=== PATIENT | female | born 1970 | race Caucasian/White ===

== ENCOUNTER 2023-06-20 05:12 | Observation (INO) ==
--- NOTE | 2023-05-15 10:37 | PAT Medication Instructions ---
Medication Instructions Date of Service May 15, 2023 Home Medications azelastine 137 mcg (0.1 %) nasal spray aerosol 1 - 2 spray intranasal HS bupropion HCl 100 mg tablet 100 mg PO BID celecoxib 200 mg capsule 200 mg PO QAM cetirizine 10 mg tablet (Zyrtec) 10 mg PO BID fexofenadine 180 mg tablet (Inessa Allergy) 180 mg PO BID fluoxetine 20 mg capsule 60 mg PO QAM fluticasone propionate 50 mcg/actuation nasal spray,suspension 2 spray intranasal QAM folic acid 400 mcg tablet 0.4 mg PO QAM gabapentin 100 mg capsule 100 - 300 mg PO UD loratadine 10 mg tablet 10 mg PO BID losartan 50 mg-hydrochlorothiazide 12.5 mg tablet 1 tab PO QAM mechlorethamine 0.016 % topical gel (Valchlor) 1 applic topical DAILY "stress related skin patches" metformin 500 mg tablet 1,000 mg PO BID PCOS methotrexate sodium 2.5 mg tablet 15 mg PO Q7D montelukast 10 mg tablet 10 mg PO QAM omeprazole 40 mg capsule,delayed release 40 mg PO QAM phentermine 37.5 mg tablet 37.5 mg PO QAM tramadol 10 mg PO Q8H PRN Pain triamcinolone acetonide 0.1 % topical cream 1 applic topical DAILY PRN "stress related skin patches" MEDICATION INSTRUCTIONS: Continue as directed triamcinolone acetonide 0.1 % topical cream 1 applic topical DAILY PRN "stress related skin patches" (*do not apply to surgical area after bathing prior to surgery) mechlorethamine 0.016 % topical gel (Valchlor) 1 applic topical DAILY "stress related skin patches" (*do not apply to surgical area after bathing prior to surgery) ASK your surgeon for instructions celecoxib 200 mg capsule 200 mg PO QAM DO NOT take the morning of surgery cetirizine 10 mg tablet (Zyrtec) 10 mg PO BID fexofenadine 180 mg tablet (Inessa Allergy) 180 mg PO BID loratadine 10 mg tablet 10 mg PO BID folic acid 400 mcg tablet 0.4 mg PO QAM losartan 50 mg-hydrochlorothiazide 12.5 mg tablet 1 tab PO QAM metformin 500 mg tablet 1,000 mg PO BID PCOS Take morning of surgery With a small sip of water, OTHERWISE NOTHING TO EAT OR DRINK AFTER MIDNIGHT: bupropion HCl 100 mg tablet 100 mg PO BID fluoxetine 20 mg capsule 60 mg PO QAM fluticasone propionate 50 mcg/actuation nasal spray,suspension 2 spray intranasal QAM gabapentin 100 mg capsule 100 - 300 mg PO UD tramadol 10 mg PO Q8H PRN Pain (if needed) omeprazole 40 mg capsule,delayed release 40 mg PO QAM montelukast 10 mg tablet 10 mg PO QAM Take evening before surgery azelastine 137 mcg (0.1 %) nasal spray aerosol 1 - 2 spray intranasal HS bupropion HCl 100 mg tablet 100 mg PO BID cetirizine 10 mg tablet (Zyrtec) 10 mg PO BID fexofenadine 180 mg tablet (Inessa Allergy) 180 mg PO BID loratadine 10 mg tablet 10 mg PO BID gabapentin 100 mg capsule 100 - 300 mg PO UD tramadol 10 mg PO Q8H PRN Pain (if needed) metformin 500 mg tablet 1,000 mg PO BID PCOS Other Notes STOP taking 7 days prior to surgery: methotrexate sodium 2.5 mg tablet 15 mg PO Q7D STOP taking 5 days prior to surgery: phentermine 37.5 mg tablet 37.5 mg PO QAM If you have any questions please call us at [phone] or [phone] or [phone] or [phone]
--- NOTE | 2023-05-24 15:37 | Anesthesiology Consultation ---
Date of Service May 24, 2023 Assessment & Plan (1) Encounter for pre-operative examination: Plan - check urine test STAT am DOS. - h/o multiple vocal cord surgeries: Pt states that Dr. Castaneda with [facility] advised we should contact her office prior to proceeding with surgery. I called Dr. 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 if undergoing arthroscopic knee surgery, may consider spinal under MAC, alternatively may use small ETT if indicated..." - concern with blood transfusion: pt requests non-COVID vaccine blood transfusion. I advised the blood bank has informed us they cannot screen for this. She inquired as to self-donation which I advised is unfortunately not recommended at this interval to surgery being less than 1 month though that if she were to pursue this surgery could be re-scheduled. She prefers not to re- schedule surgery and inquired if a family member had an appropriate blood type could she receive a blood donation from that individual. Per Kervin with [facility] blood [facility], the patient can pursue direct donor through the [employer] and provided phone number. This was provided to patient and I asked that she notify our office if she elects to pursue this option/family member is eligible donor. Per Kervin, the [employer] will coordinate screening family member and transferring blood donation to [facility] prior to patient's surgery without further intervention or coordination from PAT or blood bank. Surgeon's office made aware. - difficult IV stick. - Outpatient joint assessment: Patient is currently scheduled for inpatient path way. If re-evaluated pending system levels during current pandemic/surgeon requests outpatient pathway, patient is not recommended candidate for outpatient joint program from anesthesia standpoint. Pt states is to be scheduled overnight per surgeon's office/her preference, current booking is for outpatient joint. Chart Review Chart Review: Pending: Refer to Additional Notes / Consult section and Patient seen in Pre Admission Testing Teaching & Discussion Pre-Anesthesia Teaching/Discussion Notes: Instructed NPO after midnight before surgery, except medications with 15 cc of water. Medication instructions provided according to the PAT guidelines. History Surgery Operation Date: 06/20/23 07:00 Proposed Procedures p OP: Right Total Knee Arthroplasty - Guille Archer MD s With Deep Hardware Removal - Guille Archer MD Height/Weight Height: 5 ft 5 in Weight: 126.8 kg Allergies Allergy/AdvReac Type Severity Reaction Status Date / Time Estrogens AdvReac Unknown hx blood Verified 05/14/23 13:32 clots Medications Home Medications Medication Instructions Recorded Confirmed Last Taken azelastine 137 mcg (0.1 %) nasal 1 - 2 spray intranasal HS 05/14/23 05/14/23 Unknown spray aerosol bupropion HCl 100 mg tablet 100 mg PO BID 05/14/23 05/14/23 Unknown celecoxib 200 mg capsule 200 mg PO QAM 05/14/23 05/14/23 Unknown cetirizine 10 mg tablet (Zyrtec) 10 mg PO BID 05/14/23 05/14/23 Unknown fexofenadine 180 mg tablet 180 mg PO BID 05/14/23 05/14/23 Unknown (Inessa Allergy) fluoxetine 20 mg capsule 60 mg PO QA 05/14/23 05/14/23 Unknown fluticasone propionate 50 2 spray intranasal QA 05/14/23 05/14/23 Unknown mcg/actuation nasal spray,suspension folic acid 400 mcg tablet 0.4 mg PO QAM 05/14/23 05/14/23 Unknown gabapentin 100 mg capsule 100 - 300 mg PO UD 05/14/23 05/14/23 Unknown loratadine 10 mg tablet 10 mg PO BID 05/14/23 05/14/23 Unknown losartan 50 mg-hydrochlorothiazide 1 tab PO QA 05/14/23 05/14/23 Unknown 12.5 mg tablet mechlorethamine 0.016 % topical 1 applic topical DAILY "stress 05/14/23 05/14/23 Unknown gel (Valchlor) related skin patches" metformin 500 mg tablet 1,000 mg PO BID PCOS 05/14/23 05/14/23 Unknown methotrexate sodium 2.5 mg tablet 15 mg PO Q7D 05/14/23 05/14/23 Unknown montelukast 10 mg tablet 10 mg PO QAM 05/14/23 05/14/23 Unknown omeprazole 40 mg capsule,delayed 40 mg PO QAM 05/14/23 05/14/23 Unknown release phentermine 37.5 mg tablet 37.5 mg PO QAM 05/14/23 05/14/23 Unknown tramadol 10 mg PO Q8H PRN Pain 05/14/23 05/14/23 Unknown triamcinolone acetonide 0.1 % 1 applic topical DAILY PRN "stress 05/14/23 05/14/23 Unknown topical cream related skin patches" ergocalciferol (vitamin D2) 1,250 1,250 mcg PO 05/24/23 Unknown mcg (50,000 unit) capsule (Vitamin D2) ferrous sulfate 325 mg (65 mg 325 mg PO QAM 05/24/23 05/24/23 Unknown iron) tablet Additional Notes: Pt reports also taking iron supplement daily in the morning and Vitamin D twice weekly. She was instructed and it was written on provided medication instructions. Patient was also advised to check ith prescriber and surgeon regarding Valchlor. She verbalized understanding and agreement, denied questions, concerns or additional medications. Past Medical History Medical History (Updated 05/25/23 @ 10:27 by Marya Del Angel PA-C) Anxiety Expected difficult intubation h/o multiple vocal cord surgeries, rheumatoid arthritis Family history of colon cancer GERD (gastroesophageal reflux disease) suspected diagnosis per pt Hypertension controlled, stable per pt Laryngeal cancer SCC, s/p multiple surgical interventions as outlined in 03/2023 ENT note [facility], torso and gluteal predominantly, occasional flares on arms Nausea and vomiting after administration of anesthetic agent denies needing scop patch PCOS (polycystic ovarian syndrome) "reason for taking metformin" Pulmonary emboli multiple 2011, attributed to hormone therapy at that time which has since been d/c Rheumatoid arthritis Seasonal allergies Sezary disease Sleep apnea CPAP-compliant Vocal fold atrophy Patient denies h/o stroke, seizures, heart attack, heart failure, DM, or blood transfusions. Exercise / Class Metabolic Activity III < 4 Walking/Shop/Light housework (denies chest discomfort or shortness of breath with usual activities) Past Surgical History Surgical History History of repair of vocal cord x4 in total on left side Hx of colonoscopy Hx of knee surgery age 35>"to make knees track correctly, had one surgery done at a time, on each knee" Past Anesthesia History Difficult Airway and No Family Hx of Anesthesia Complications History of PONV No Hx of Motion Sickness and History of PONV (denies needing scop patch) Social History Smoking Status: Never smoker Do You Dip or Chew Tobacco: No Hx Alcohol Use: Yes alcohol intake frequency: holidays/special occasions only Hx Substance Use: No substance use type: does not use Review of Systems Patient denies chest pain, shortness of breath, dyspnea on exertion, fever, chills, cough, wheezing, or palpitations. Physical Exam Vital Signs Vitals BP 114/71 P 99 TEMP 98.4 SP02 97% on RA RESP 18 Physical Full cervical extension range of motion without pain TMD < 3 finger breadths Mallampati Score 3 Dentition: loose left upper front "baby tooth" and crown, denies chipped teeth, caps, implants or bridges Lungs: normal respiratory effort. Good air movement, clear throughout to auscultation, no adventitious breath sounds Cardiac: regular rate and rhythm, no murmurs noted Carotid arteries: negative bruit bilat Lab Results Anesthesia Preop Results Results Anesthesia Widget: WBC 9.93 K/ul (4.8-10.8) 05/24/23 Hgb 11.9 g/dl (12.0-16.0) L 05/24/23 Hct 36.8 % (37.0-47.0) L 05/24/23 Plt 341 K/uL (130-400) 05/24/23 Na 137 mmol/L (136-145) 05/24/23 K 4.1 mmol/L (3.5-5.1) 05/24/23 Cl 103 mmol/L (98-107) 05/24/23 CO2 26 mmol/L (21-32) 05/24/23 BUN 12 mg/dl (6-23) 05/24/23 Creat 0.75 mg/dl (0.6-1.2) 05/24/23 Glucose Level 145 mg/dl (70-99(Fasting)) H 05/24/23 PT 10.4 Seconds (9.0-12.0) 05/24/23 PTT 24.8 Seconds (21.0-31.0) 05/24/23 INR 0.9 (0.9-1.1) 05/24/23 Urine Color Yellow 05/24/23 Urine Appearance Clear (Clear) 05/24/23 Urine pH 6.0 (4.5-7.5) 05/24/23 Urine Specific [place] 1.015 (1.000-1.030) 05/24/23 Urine Protein Negative (Negative) 05/24/23 Urine Glucose (UA) Negative (Negative) 05/24/23 Urine Ketones Negative (Negative) 05/24/23 Urine Blood Negative (Negative) 05/24/23 Urine Nitrite Negative (Negative) 05/24/23 Urine Bilirubin Negative (Negative) 05/24/23 Urine Urobilinogen Negative (Negative) 05/24/23 Urine Leukocyte Esterase Negative (Negative) 05/24/23 Blood Type A Positive 05/24/23 Antibody Screen NEGATIVE 05/24/23 Testing Electrocardiogram Date: 05/24/23 NSR, rate 95 bpm Rightward axis Chest X-Ray Date: 05/24/23 No acute process. Cervical Spine Date: 05/24/23 No fracture or subluxation within the cervical spine. The alignment remains intact throughout flexion and extension. COVID-19 Risk Screen Screening Information COVID-19 Screen Date: 05/24/23 Exposure 21 Days Family/Household +COVID Last 21 Days: No Exposure 10 Days Any COVID Exposure Last 10 Days: No Symptoms Last 10 Days Experienced COVID Sx Last 10 Days: No + COVID 0-90 Days COVID + in Last 0-90 Days: No
[2023-06-20] MEDS ORDERED: TRANEXAMIC ACID / 0.7% NACL 1000MG/100ML BAG IV ONE (05:31)
[2023-06-20] MEDS ORDERED: LR 500ML BOLUS, THEN 15ML/HR IV SCH (06:00)
[2023-06-20] MEDS ORDERED: ROPIVACAINE 0.5% HCL/PF 150 MG, BUPIVACAINE 0.75% MPF 20 ML, EPINEPHrine 0.15 MG, Ketor... INFIL SCH (06:00)
[2023-06-20] MEDS ORDERED: LR 60ML/HR IV SCH (06:00)
[2023-06-20] MEDS ORDERED: TRANEXAMIC ACID 1,000 MG x 1 **For Topical Use TOP SCH (06:00)
[2023-06-20] MEDS ORDERED: BUPIVACAINE 0.5 % 5 MG/1 ML PF 10ML VIAL ONE (06:23)
[2023-06-20] MEDS ORDERED: ROPIVACAINE 0.5% 5 MG/ML 30 ML VIAL ONE (06:23)
--- NOTE | 2023-06-20 06:25 | History & Physical Bridge Note ---
Date of Service June 20, 2023 History & Physical Bridge Note I have examined the patient, reviewed the History & Physical and in the interval since the performance of the History & Physical I have noted the following changes of clinical significance:consent obtained/site verified/knee very stiff and advised of limitations in range post op based on preop limitations . no changes noted
[2023-06-20] MEDS ORDERED: MIDAZOLAM HCL 1 MG/ML 2ML VIAL ONE ×2 (06:27→08:25)
[2023-06-20] MEDS ORDERED: fentaNYL citrate PF 100 MCG/2 ML VIAL ONE (06:27)
[2023-06-20] MEDS ORDERED: PROPOFOL IV EMULSION 10 MG/ML 20 ML VIAL IV ONE ×3 (06:27→08:26)
[2023-06-20] MEDS ORDERED: ePHEDrine sulfate 50 MG/ML AMP IV PRN (06:38)
[2023-06-20] MEDS ORDERED: ONDANSETRON INJ 2 MG/ML 2 ML VIAL IV PRN ×2 (06:38→10:03)
[2023-06-20] MEDS ORDERED: ATROPINE SULFATE 0.1 MG/ML 10ML SYR IV PRN (06:38)
[2023-06-20] MEDS ORDERED: fentaNYL citrate PF 100 MCG/2 ML VIAL IV PRN (06:38)
[2023-06-20] MEDS ORDERED: ORTHO JOINT ANESTHETIC ONE (06:40)
[2023-06-20] MEDS ORDERED: KETAMINE 50 MG/5 ML SYRINGE ONE (07:11)
[2023-06-20] MEDS ORDERED: GLYCOPYRROLATE 0.2 MG/ML VIAL ONE (07:11)
[2023-06-20] MEDS ORDERED: ONDANSETRON INJ 2 MG/ML 2 ML VIAL ONE (07:11)
--- NOTE | 2023-06-20 08:54 | Post Operative Brief Note ---
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
--- NOTE | 2023-06-20 08:58 | Operative Report ---
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 Fluids See anesthesia report Specimens Pathology pending on bone Drains None Complications None Description of Procedure Severe arthrofibrosis marked varus alignment chronic pain Space medically cleared female with intractable right knee pain has had pain for an extended period of time. She has range of motion from -30 degrees to 40 degrees of flexion in essence a 10 degree arc. She walks on a bent knee gait she has severe discomfort. She has retained hardware. She had a Erin osteotomy done in the past. She has extensive tricompartmental arthrosis osteoarthritis. She understands risk and consequences. Procedure patient identified site provide consent of right antibody for her to be given the right lower extremity was prepped and draped in usual routine fashion. Range of motion was as noted above. Tourniquet was inflated to 2to 300 mmHg for a total of 70 minutes. A generous incision was made based on size and's and severity of deformity. Full-thickness flaps were raised. Parapatellar try to be formed. Extensive scar tissue required tedious release along extensor mechanism. Proximal screw was then identified after removal of significant tissue was then removed. The patella and medial lateral release as well. This did not allow the patella to be everted and retracted appropriately. There was extensive osteophytes about the femur these were all resected. Cruciates were then resected the tibia subluxated menisci resected. There was severe deformity to the proximal tibia and distal femur. The distal femur was then resected 14 mm proximal tibia 4 mm and required an additional 2 mm. Once this was done the distal femur was cut to a 2-1/2. It was measured 3-3 and a 2-1/2 and cut 2-1/2. Posterior capsule was then released better. This allowed the extension gap to be excellent. The flexion gap was then checked and was excellent. Box cut was then made to size 2 and half it well. Proximal tibia was then broached and reamed to a size 2-1/2. 10 spacer allowed full range of motion excellent patella tracking and good stability. Patella was everted resecting leaving about 50 mm. The 35 button was then seated. It tracked well. Ortho mix was injected about the knee. All trial implants removed the TXA was soaked with 3 minutes of Betadine for 2 minutes and then irrigated and the permanent cemented into position tibia femur and patella in that order 12 minutes the tourniquet deflated minor bleeding points controlled electrocautery estimated blood loss was 100 cc. Once this was all cured ready was irrigated 1 final time with Betadine Pulsavac the permanent liner seated the knee reduced and closed with #2 Vicryl 2-0 Vicryl standstill clips dressing including Venkatesh Ramos cotton was applied. Patient was then transferred to cover in satisfactory addition he tolerated seizure well. This is a modifier 22 based on the extensive disease requiring extensive releases and hardware removal. I attest to the content of the Intraoperative Record and any orders documented therein. Any exceptions are noted below.
--- NOTE | 2023-06-20 08:59 | Operative Report ---
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 I attest to the content of the Intraoperative Record and any orders documented therein. Any exceptions are noted below.
--- NOTE | 2023-06-20 09:19 | Operative Report ---
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 She had tried conservative care measures without improvement. She has a history of previous Erin osteotomy approximately 17 years ago. She elected to proceed with further surgical intervention in hopes of improving her pain and function. She was educated regarding potential risks and outcomes. Preoperative imaging was obtained. Description of Procedure The patient was administered a spinal anesthetic and then taken to the operating room where she was given sedation. She was prepped and draped in the usual sterile fashion. Please see Dr. Archer's operative report for specifics of the procedure. I was present for the entire case from initial patient positioning through final wound closure. Assistance was provided in tissue retraction, hemostasis, trial implant placement, final implant placement, and final wound closure. The patient was taken to the recovery room in satisfactory condition. I attest to the content of the Intraoperative Record and any orders documented therein. Any exceptions are noted below.
--- NOTE | 2023-06-20 09:27 | Orthopedic Progress Note ---
Date of Service June 20, 2023 Assessment & Plan (1) Arthrofibrosis of knee joint: Plan: Continue care pathway will need aggressive rehab to prevent stiffness. We will use Eliquis for DVT PE prophylaxis and she has a history of pulmonary embolism in the past. (2) Status post right knee replacement: Subjective Resting comfortably status post right total knee replacement with severe disease severe arthrofibrosis. Denies chest pain shortness of breath fever chills nausea vomiting or headache. Physical Exam Physical Exam: Wound dressing clean dry and intact neurovascular check limited by spinal. X- rays postop AP and lateral look excellent. Results & Data Vital Signs (Past 12 Hours) Vital Signs Temp Pulse Resp BP Pulse Ox O2 Del Method 06/20/23 05:51 36.9 C 91 H 20 169/96 H 97 Room Air Diagnostic Findings X-rays look excellent. Hardware appropriately removed proximally. Total knee replacement look excellent.
--- NOTE | 2023-06-20 09:29 | Discharge Summary ---
Date of Service June 20, 2023 Admission HPI Per Admitting Provider Here for total knee replacement right knee for severe arthrofibrosis. Principal Diagnosis Arthrofibrosis right knee severe osteoarthritis right knee flexion contracture 30 degrees range of motion 10 degree arc. Review of systems noncontributory Discharge Exam Wound dressing clean dry and intact neurovascular check limited by spinal. X- rays postop AP and lateral look excellent. Discharge Data Allergies Allergy/AdvReac Type Severity Reaction Status Date / Time Estrogens AdvReac Unknown hx blood Verified 06/20/23 05:33 clots Procedures Performed Operation Date: 06/20/23 07:00 Actual Procedures p Right Total Knee Arthroplasty(Right) - Guille Archer MD Ordered Studies 06/20/23 05:00 US - OR guided needle placemen Routine 06/20/23 07:00 FL fluoroscopy <1hr Routine Hospital Course (1) Arthrofibrosis of knee joint: Continue care pathway will need aggressive rehab to prevent stiffness. We will use Eliquis for DVT PE prophylaxis and she has a history of pulmonary embolism in the past. (2) Status post right knee replacement: Plan Continue care pathway Eliquis for DVT PE prophylaxis discharge with home services. Total Time Total Time Spent Total Time Spent (In Minutes): 15 minutes Discharge Plan Discharge Items Patient Disposition: Home - Self-Care Reason For Visit: Right Knee Degenerative Joint Disease with Retaine Discharge Diagnosis: Status post right total knee replacement Excercise/Sports: Wait until after follow-up appointment Driving/Machine Use Comment: No driving x6 weeks Weightbearing: Full weightbearing Non-emergency contact: Surgeon Call non-emergency contact if: your temperature is above 101.5, your wound has increased redness, your wound has increased drainage and your wound pain has increased Follow-Up/Referrals: PCP,NO [Physician] - Diet: Resume previous diet Addtl Attending Provider Instructions: DIET: * Resume previous diet. MEDICATIONS: * Please take your prescriptions as instructed at your pre-op appointment and/or see medication discharge instructions listed above. * If concerns develop, call your physician's office at . SPECIAL CARE INSTRUCTIONS: * Ice/Elevate as instructed. * Keep dressing clean, dry, intact. * Your surgical extremity may be discolored due to prepping agents used on the skin. A bluish-green tint is a normal variant and should not cause alarm. Call your doctor at [phone] if: * Temperature above 101 degrees * Pain not relieved by pain medicine ordered * There is increased drainage or redness from any incision * You have any unanswered questions, problems or concerns. FOLLOW UP VISIT: * If not already scheduled, please call the office at to schedule a follow-up appointment. Pending Studies at Discharge: Yes (Bone pathology) Stand-Alone Forms: My [facility] Prescriptions: No Action celecoxib 200 mg Capsule 200 mg PO QAM metformin 500 mg Tablet 1,000 mg PO BID cetirizine [Zyrtec] 10 mg Tablet 10 mg PO BID Patient Comments: alternates with other OTC allergy meds phentermine 37.5 mg Tablet 37.5 mg PO QAM Rx Instructions: must administer 30 minutes before or 1-2 hours after breakfast fexofenadine [Inessa Allergy] 180 mg Tablet 180 mg PO BID Patient Comments: alternates with other OTC allergy meds folic acid 400 mcg Tablet 0.4 mg PO QAM omeprazole 40 mg Capsule,Delayed Release(Dr/Ec) 40 mg PO QAM triamcinolone acetonide 0.1 % Cream 1 applic TOPICAL DAILY PRN (Reason: "stress related skin patches") bupropion HCl 100 mg Tablet 100 mg PO BID methotrexate sodium [Methotrexate (Anti-Rheumatic)] 2.5 mg Tablet 15 mg PO Q7D Patient Comments: montelukast 10 mg Tablet 10 mg PO QAM gabapentin 100 mg Capsule 100 - 300 mg PO UD Rx Instructions: 100mg QAM and 300mg HS azelastine 137 mcg (0.1 %) Aerosol,[place] 1 - 2 spray INTRANASAL HS Rx Instructions: administer into each nostril losartan-hydrochlorothiazide 50-12.5 mg Tablet 1 tab PO QAM fluoxetine 20 mg Capsule 60 mg PO QAM fluticasone propionate 50 mcg/actuation [place],Suspension 2 spray INTRANASAL QAM Rx Instructions: administer into each nostril loratadine 10 mg Tablet 10 mg PO BID Patient Comments: alternates with other OTC allergy meds Valchlor 0.016 % Gel 1 applic TOPICAL DAILY tramadol 10 mg PO Q8H PRN (Reason: Pain) ferrous sulfate 325 mg (65 mg iron) Tablet 325 mg PO QAM ergocalciferol (vitamin D2) [Vitamin D2] 1,250 mcg (50,000 unit) Capsule 1,250 mcg PO Rx Instructions: twice weekly Discharge Orders: Discharge Order (Routine); Ordered 06/20/23 Ordered By: Guille Archer Admission Data Attending Provider: Guille Archer Primary Care Provider: Pablo Perdue
--- NOTE | 2023-06-20 09:39 | XRay Report ---
XR knee RT 1 or 2V routine HISTORY: 52 years-old Female S/P R TKA right knee arthroplasty COMPARISON: 01/02/2023 TECHNIQUE: 2 views of the right knee FINDINGS: Total joint arthroplasty with patellar resurfacing. Anterior midline skin marc with expected posto perative soft tissue swelling and deep tissue air. IMPRESSION: Total joint arthroplasty with expected postoperative changes. ACT 112: Negative or not required by law. The above report was generated using voice recognition software. It may contain grammatical, syntax o r spelling errors. Electronically signed by: Yovani Edmonds M.D. 06/20/2023 9:38 AM
--- NOTE | 2023-06-20 09:45 | Anesthesiology Progress Note ---
Date of Service June 20, 2023 Anesthesia Post Procedure Vital Signs Vital Signs: Temp Pulse Pulse Resp BP Pulse Ox O2 Del Method 06/20/23 09:30 97.5 F L 76 18 115/70 95 Room Air 06/20/23 09:20 78 15 156/98 H 97 Room Air 06/20/23 09:10 97.3 F L 77 14 148/79 H 98 Oxymask 06/20/23 05:51 98.4 F 91 H 20 169/96 H 97 Room Air O2 Flow Rate 06/20/23 09:30 06/20/23 09:20 06/20/23 09:10 6 06/20/23 05:51 Pain Intensity Left Lateral Knee: Pain Intensity: 10 Transfer of Care Handoff Completed per policy Notes Mental Status: alert / awake / arousable and participated in evaluation Patient Amnestic to Procedure: Yes Nausea / Vomiting: adequately controlled Pain: adequately controlled Airway Patency, RR, SpO2: stable & adequate BP & HR: stable & adequate Hydration State: stable & adequate Neuraxial Anesthesia: was administered and sensory block is resolving Anesthetic Complications: no major complications apparent and Pt Satisfied with anesthetic care
[2023-06-20] MEDS ORDERED: diphenhydrAMINE 50 MG/ML VIAL IV PRN (10:03)
[2023-06-20] MEDS ORDERED: MAGNESIUM HYDROXIDE SUSP 30 ML UDC PO PRN (10:03)
[2023-06-20] MEDS ORDERED: SODIUM CHLORIDE 0.9% 1000ML 1,000 ML IV SCH (10:03)
[2023-06-20] MEDS ORDERED: METOCLOPRAMIDE HCL INJ 5 MG/ML 2 ML VIAL IV PRN (10:03)
[2023-06-20] MEDS ORDERED: bisacodyL 10 MG SUPP PR PRN (10:03)
[2023-06-20] MEDS ORDERED: HYDROmorphone INJ 0.5 MG/0.5 ML SYR IV PRN (10:03)
[2023-06-20] MEDS ORDERED: ALUMINUM/MAGNESIUM SUSP 30 ML UDC PO PRN (10:03)
[2023-06-20] MEDS ORDERED: NALOXONE HCL 0.4 MG/1 ML VIAL/CARP IV PRN (10:03)
--- NOTE | 2023-06-20 11:53 | Orthopedic Progress Note ---
Date of Service June 20, 2023 Assessment & Plan (1) Arthrofibrosis of knee joint: Plan: Continue care pathway will need aggressive rehab to prevent stiffness. We will use Eliquis for DVT PE prophylaxis and she has a history of pulmonary embolism in the past. (2) Status post right knee replacement: Plan Continue care pathway Eliquis for DVT PE prophylaxis discharge with home services. Admission and Anticipated Discharge Date Admission Date: June 20, 2023 Subjective Resting comfortably status post right total knee replacement with severe disease severe arthrofibrosis. Denies chest pain shortness of breath fever chills nausea vomiting or headache. After the rounds up on the floor she looks good denies chest pain shortness of breath fever chills nausea or headache. Vital signs are stable she is afebrile. Femoral sciatic nerve is functioning well. Wound dressing clean dry and intact. Can do a straight leg raise. Can flex to about 50 or 60 degrees. She is excited that her leg is out straight. He she has done that for decades. Physical Exam Physical Exam: Wound dressing clean dry and intact neurovascular check limited by spinal. X- rays postop AP and lateral look excellent. Results & Data Vital Signs (Past 12 Hours) Vital Signs Temp Pulse Pulse Pulse Resp BP BP 06/20/23 10:58 34.8 C L 68 16 146/89 H 06/20/23 10:33 34.8 C L 68 16 131/85 06/20/23 10:03 36.3 C L 69 16 136/83 06/20/23 10:21 06/20/23 09:40 71 16 135/75 06/20/23 09:30 36.4 C L 76 18 115/70 06/20/23 09:20 78 15 156/98 H 06/20/23 09:10 36.3 C L 77 14 148/79 H 06/20/23 05:51 36.9 C 91 H 20 169/96 H Pulse Ox O2 Del Method O2 Flow Rate 06/20/23 10:58 100 Room Air 06/20/23 10:33 99 Room Air 06/20/23 10:03 97 Room Air 06/20/23 10:21 Room Air 06/20/23 09:40 95 Room Air 06/20/23 09:30 95 Room Air 06/20/23 09:20 97 Room Air 06/20/23 09:10 98 Oxymask 6 06/20/23 05:51 97 Room Air
[2023-06-20] MEDS: GABAPENTIN 100 MG CAP PO SCH (14:00)
[2023-06-20] MEDS: ACETAMINOPHEN 500 MG TAB PO SCH ×2 (14:00→21:19)
[2023-06-20] MEDS: KETOROLAC 30 MG/ML VIAL IV SCH ×3 (14:02→21:19)
[2023-06-20] MEDS: ASCORBIC ACID 500 MG TAB PO SCH (17:10)
[2023-06-20] MEDS: ceFAZolin 2000MG 2,000 MG/15 ML SYR IV SCH ×2 (17:26→23:00)
[2023-06-20] MEDS: oxyCODONE HCL IR 5 MG TAB (IMMEDIATE RELEASE) PO PRN (17:33)
[2023-06-20] MEDS: buPROPion HCl 100 MG TABLET PO SCH (20:13)
[2023-06-20] MEDS: DOCUSATE SODIUM 100 MG CAP PO SCH (20:14)
[2023-06-20] MEDS: CETIRIZINE HCL 10 MG TABLET PO SCH (20:15)
[2023-06-20] MEDS: FEXOFENADINE HCL 180 MG TAB PO SCH (20:17)
[2023-06-20] MEDS: LORATADINE 10 MG TAB PO SCH (20:18)
[2023-06-20] MEDS ORDERED: AZELASTINE HCL 0.1% NASAL 200 SPRAYS/27,400 MCG BTL NAE SCH (21:00)
[2023-06-20] MEDS ORDERED: GABAPENTIN 300 MG CAP PO SCH (21:00)
[2023-06-20] MEDS ORDERED: SENNA 8.6 MG TAB PO SCH (21:00)
[2023-06-21] MEDS: KETOROLAC 30 MG/ML VIAL IV SCH (03:03)
[2023-06-21] MEDS: ACETAMINOPHEN 500 MG TAB PO SCH (05:10)
[2023-06-21 07:04] LABS: Hematocrit (blood only) 31.2 % (37.0-47.0); Hemoglobin 10.1 g/dl (12.0-16.0); Mean Corpuscular Hemoglobin 26.9 pg (25.0-34.0); Mean Corpuscular Hgb Conc 32.4 g/dL (32.0-36.0); Mean Platelet Volume 10.3 fL (9.4-12.4); Platelet Count 279 K/uL (130-400); RDW Coefficient of Variation 17.2 % (11.5-14.5); RDW Standard Deviation 51.7 fL (36.4-46.3); Red Blood Count 3.76 M/uL (4.20-5.40); White Blood Count 8.86 K/ul (4.8-10.8)
[2023-06-21 07:22] LABS: BUN Creatinine Ratio 15.4 (10-20); Calcium 8.7 mg/dl (8.6-10.3); Creatinine Clr Calc Pharmacy 112.8 ml/min; Est GFR (African American) 101.3 ml/min; Est GFR (Non-African American) 87.4 ml/min; Potassium 3.9 mmol/L (3.5-5.1)
[2023-06-21] MEDS: oxyCODONE HCL IR 5 MG TAB (IMMEDIATE RELEASE) PO PRN (07:27)
--- NOTE | 2023-06-21 07:40 | Orthopedic Progress Note ---
Date of Service June 21, 2023 Assessment & Plan (1) Status post right knee replacement: Plan Continue care pathway discharge home on Eliquis. Aileen replaced today. Discharge after PT OT. Admission and Anticipated Discharge Date Admission Date: June 20, 2023 Orthopedic Progress Note Postop day 1 status post right total knee replacement for severe arthrofibrosis and osteoarthritis. She notes that she is doing well. She denies chest pain shortness of breath fevers chills nausea vomiting or headache. Vital signs are stable she is febrile. Wound dressing clean and dry. Neurovascular check from sciatic nerve is normal. Range of motion is near 0 to near 80 degrees limited by dressing. Assessment status post right total knee replacement for severe disease continue care pathway dressing change Aileen placed today by PA later this morning. Discharge to home. DVT prophylaxis per protocol. Follow-up in 2 weeks for staple movable. We will place her on Eliquis due to history of PE remotely.
[2023-06-21] MEDS ORDERED: metFORMIN HCL 500 MG TAB PO SCH (08:00)
[2023-06-21] MEDS ORDERED: dexAMETHasone 10 MG in SYRINGE 0 ML IV SCH (08:00)
[2023-06-21] MEDS: LORATADINE 10 MG TAB PO SCH (08:37)
[2023-06-21] MEDS: GABAPENTIN 100 MG CAP PO SCH (08:37)
[2023-06-21] MEDS: CETIRIZINE HCL 10 MG TABLET PO SCH (08:37)
[2023-06-21] MEDS: FEXOFENADINE HCL 180 MG TAB PO SCH (08:38)
[2023-06-21] MEDS: DOCUSATE SODIUM 100 MG CAP PO SCH (08:38)
[2023-06-21] MEDS: ASCORBIC ACID 500 MG TAB PO SCH (08:40)
[2023-06-21] MEDS: buPROPion HCl 100 MG TABLET PO SCH (08:40)
--- NOTE | 2023-06-21 08:40 | Orthopedic Progress Note ---
Date of Service June 21, 2023 Assessment & Plan (1) Status post right knee replacement: Plan: The patient was educated regarding today's findings. Conservative care measures were discussed. Her knee dressing was changed to a Prevena wound VAC. Good seal was obtained. She will leave this in place for a week. I will see her on June 28 at 2:30 PM for removal. She is aware. Importance of using her knee immobilizer when out of bed today and tomorrow was discussed. She may discontinue it entirely on Sunday morning. Use the walker for ambulation. [facility] has already been established by the office. Follow-up with me in 2 weeks as scheduled for staple removal. Continue with ice, elevation, and use of her compression stocking. Written discharge instructions were provided. Prescriptions for Percocet and Eliquis 2.5 mg were sent to her pharmacy. Call with any other questions. Admission and Anticipated Discharge Date Admission Date: June 20, 2023 Subjective This 52-year-old female is seen today in her room. She is 1 day status post right total knee arthroplasty. She states she is doing well. She has very little pain. She is very happy. She denies any numbness or tingling. No nausea, vomiting, abdominal pain, chest pain, shortness of breath, or back pain. She has been out of bed. She has finished her breakfast and is awaiting PT. She is hoping to go home today. Review of Systems Review of Systems: Unchanged from yesterday. Physical Exam Physical Exam: General: Well-developed, well-nourished, middle-aged female, in no acute distress. Sitting in her bed. Alert and oriented. Skin: Warm and dry with good turgor. No rashes. Postsurgical dressing is in place on the right knee. Upon removal, she has scant dried blood on her inner dressings. There is no active bleeding today. Sundeep are intact. Wound edges are well approximated. No erythema or warmth. No ecchymosis. Expected postoperative edema. Musculoskeletal: The patient has intact motor function of her hip, knee, and ankle. She has full terminal extension. Flexion to 40 degrees without difficulty. She is able to perform a straight leg raise with minimal assistance. Neurologic: Gross sensation is intact across the right leg by soft touch. Results & Data Vital Signs (Past 12 Hours) Vital Signs Temp Pulse Resp BP Pulse Ox O2 Del Method 06/21/23 07:26 36.8 C 87 18 104/66 96 Room Air 06/21/23 03:07 36.9 C 86 16 117/75 97 Room Air 06/20/23 23:01 36.4 C L 76 16 121/78 96 Room Air Laboratory Results CBC obtained today shows a white count of 8.86. H&H of 10.1 and 31.2. Platelets normal at 279,000. Sodium 135, potassium 3.9, chloride 101, BUN of 12 with creatinine 0.78. Glucose 135.
[2023-06-21] MEDS ORDERED: FLUoxetine HCL 20 MG CAP PO SCH (09:00)
[2023-06-21] MEDS ORDERED: MULTIVITAMIN TAB PO SCH (09:00)
[2023-06-21] MEDS ORDERED: PANTOprazole 40 MG TAB PO SCH (09:00)
[2023-06-21] MEDS ORDERED: FERROUS SULFATE 325 MG TAB PO SCH (09:00)
[2023-06-21] MEDS ORDERED: APIXABAN 2.5 MG TAB PO SCH (09:00)
[2023-06-21] MEDS ORDERED: FLUTICASONE PROPIONATE NA SPR 16 GM BTL NAE SCH (09:00)
[2023-06-21] MEDS ORDERED: FOLIC ACID 400 MCG TAB PO SCH (09:00)
[2023-06-21] MEDS ORDERED: LOSARTAN/HCTZ 50/12.5MG TAB PO SCH (09:00)
[2023-06-21] MEDS ORDERED: MONTELUKAST SODIUM 10 MG TABLET PO SCH (21:00)
== END 2023-06-21 11:12 | disposition home health service (06) ==
LOC: 3E 05:12 → ASU 05:12

== ENCOUNTER 2024-07-02 06:06 | Observation (INO) ==
--- NOTE | 2024-06-03 09:14 | PAT Medication Instructions ---
Medication Instructions Date of Service June 03, 2024 Home Medications azelastine 137 mcg (0.1 %) nasal spray 1 - 2 spray intranasal HS bupropion HCl 100 mg tablet 100 mg PO BID celecoxib 200 mg capsule 200 mg PO QAM cetirizine 10 mg tablet (Zyrtec) 10 mg PO BID PRN Allergy Symptoms fexofenadine 180 mg tablet (Inessa Allergy) 180 mg PO BID PRN Allergy Symptoms fluoxetine 20 mg capsule 60 mg PO QAM fluticasone propionate 50 mcg/actuation nasal spray,suspension 2 spray intranasa l QAM folic acid 400 mcg tablet 0.4 mg PO QAM gabapentin 100 mg capsule 100 - 300 mg PO UD loratadine 10 mg tablet 10 mg PO BID PRN Allergy Symptoms losartan 50 mg-hydrochlorothiazide 12.5 mg tablet 1 tab PO QAM mechlorethamine 0.016 % topical gel (Valchlor) 1 applic topical DAILY "stress related skin patches" metformin 500 mg tablet 1,000 mg PO BID PCOS methotrexate sodium 2.5 mg tablet 15 mg PO Q7D montelukast 10 mg tablet 10 mg PO QAM omeprazole 40 mg capsule,delayed release 40 mg PO QAM triamcinolone acetonide 0.1 % topical cream 1 applic topical DAILY PRN "stress related skin patches" ergocalciferol (vitamin D2) 1,250 mcg (50,000 unit) capsule (Vitamin D2) 1,250 mcg PO DAILY ferrous sulfate 325 mg (65 mg iron) tablet 325 mg PO QAM tirzepatide 5 mg/0.5 mL subcutaneous pen injector (Mounjaro) 5 mg subcut WK ASK your surgeon for instructions celecoxib 200 mg capsule 200 mg PO QAM STOP 7 days prior to surgery methotrexate sodium 2.5 mg tablet 15 mg PO Q7D tirzepatide 5 mg/0.5 mL subcutaneous pen injector (Mounjaro) 5 mg subcut WK STOP taking 24 hours before surgery mechlorethamine 0.016 % topical gel (Valchlor) 1 applic topical DAILY "stress related skin patches" triamcinolone acetonide 0.1 % topical cream 1 applic topical DAILY PRN "stress related skin patches" DO NOT take the morning of surgery cetirizine 10 mg tablet (Zyrtec) 10 mg PO BID PRN Allergy Symptoms fexofenadine 180 mg tablet (Inessa Allergy) 180 mg PO BID PRN Allergy Symptoms folic acid 400 mcg tablet 0.4 mg PO QAM loratadine 10 mg tablet 10 mg PO BID PRN Allergy Symptoms losartan 50 mg-hydrochlorothiazide 12.5 mg tablet 1 tab PO QAM metformin 500 mg tablet 1,000 mg PO BID PCOS montelukast 10 mg tablet 10 mg PO QAM ergocalciferol (vitamin D2) 1,250 mcg (50,000 unit) capsule (Vitamin D2) 1,250 mcg PO DAILY ferrous sulfate 325 mg (65 mg iron) tablet 325 mg PO QAM Take morning of surgery With a small sip of water, OTHERWISE NOTHING TO EAT OR DRINK AFTER MIDNIGHT: bupropion HCl 100 mg tablet 100 mg PO BID fluoxetine 20 mg capsule 60 mg PO QAM fluticasone propionate 50 mcg/actuation nasal spray,suspension 2 spray intranasal QAM gabapentin 100 mg capsule 100 - 300 mg PO UD omeprazole 40 mg capsule,delayed release 40 mg PO QAM Take evening before surgery azelastine 137 mcg (0.1 %) nasal spray 1 - 2 spray intranasal HS bupropion HCl 100 mg tablet 100 mg PO BID cetirizine 10 mg tablet (Zyrtec) 10 mg PO BID PRN Allergy Symptoms (if needed) fexofenadine 180 mg tablet (Inessa Allergy) 180 mg PO BID PRN Allergy Symptoms (if needed) gabapentin 100 mg capsule 100 - 300 mg PO UD loratadine 10 mg tablet 10 mg PO BID PRN Allergy Symptoms (if needed) metformin 500 mg tablet 1,000 mg PO BID PCOS Other Notes If you have any questions please call us at [phone] or [phone] or [phone] or [phone]
--- NOTE | 2024-06-13 15:43 | Anesthesiology Consultation ---
Date of Service June 13, 2024 Assessment & Plan (1) Encounter for pre-operative examination: - Check test AM DOS - Infectious disease screening: Per assessment on 06/13/24: No known recent infectious disease contacts or current infectious disease symptoms. - Outpatient joint assessment: Pt currently scheduled for inpatient pathway. If surgeon requests review for outpatient joint pathway, patient is not recommended candidate for outpatient joint program from anesthesia standpoint based on available information. - Mounjaro instructions: Patient takes on Wednesdays. Patient informed at PAT visit to stop 7 days prior to surgery- voiced understanding. DOS 07/02/24. Advised last dose to be 06/25/24. - Difficult intubation: * Per anesthesia consult 05/24/23, Marya Onink PAC notes "h/o multiple vocal cord surgeries: Pt states that Dr. Castaneda with [facility] advised we should contact her office prior to proceeding with surgery. I called Dr. 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 if undergoing arthroscopic knee surgery, may consider spinal under MAC, alternatively may use small ETT if indicated..." * Patient had Right TKA with removal hardware 06/20/23 at [facility]: SAB at L3-4 x1 attempt + regional at [facility]. No issues noted per post-op anesthesia progress note. - Patient acceptable risk for surgery pending surgeon-ordered PCP preop evaluation (Dr. Perdue/Kathleen, appt 06/27). Chart Review Chart Review: Patient NOT seen in Pre Admission Testing History Surgery Operation Date: 07/02/24 08:50 Proposed Procedures p Left Total Knee Arthroplasty, Removal Deep Hardware - Guille Archer MD Height/Weight Height: 5 ft 5 in Weight: 126.3 kg Allergies Allergy/AdvReac Type Severity Reaction Status Date / Time Estrogens AdvReac Unknown hx blood Verified 06/02/24 13:11 clots Medications Home Medications Medication Instructions Recorded Confirmed Last Taken azelastine 137 mcg (0.1 %) nasal 1 - 2 spray intranasal HS 05/14/23 06/02/24 06/12/23 spray bupropion HCl 100 mg tablet 100 mg PO BID 05/14/23 06/02/24 06/20/23 04:00 celecoxib 200 mg capsule 200 mg PO QAM 05/14/23 06/02/24 06/17/23 cetirizine 10 mg tablet (Zyrtec) 10 mg PO BID PRN Allergy Symptoms 05/14/23 06/02/24 06/19/23 07:00 fexofenadine 180 mg tablet 180 mg PO BID PRN Allergy Symptoms 05/14/23 06/02/24 Unknown (Inessa Allergy) fluoxetine 20 mg capsule 60 mg PO QAM 05/14/23 06/02/24 06/20/23 04:00 fluticasone propionate 50 2 spray intranasal QA 05/14/23 06/02/24 06/16/23 mcg/actuation nasal spray,suspension folic acid 400 mcg tablet 0.4 mg PO QAM 05/14/23 06/02/24 06/19/23 07:00 gabapentin 100 mg capsule 100 - 300 mg PO UD 05/14/23 06/02/24 06/12/23 loratadine 10 mg tablet 10 mg PO BID PRN Allergy Symptoms 05/14/23 06/02/24 06/19/23 07:00 losartan 50 mg-hydrochlorothiazide 1 tab PO QAM 05/14/23 06/02/24 06/20/23 04:00 12.5 mg tablet mechlorethamine 0.016 % topical 1 applic topical DAILY "stress 05/14/23 06/02/24 05/20/23 gel (Valchlor) related skin patches" metformin 500 mg tablet 1,000 mg PO BID PCOS 05/14/23 06/02/24 06/17/23 07:00 methotrexate sodium 2.5 mg tablet 15 mg PO Q7D 05/14/23 06/02/24 06/07/23 montelukast 10 mg tablet 10 mg PO QAM 05/14/23 06/02/24 06/19/23 07:00 omeprazole 40 mg capsule,delayed 40 mg PO QAM 05/14/23 06/02/24 06/20/23 04:00 release triamcinolone acetonide 0.1 % 1 applic topical DAILY PRN "stress 05/14/23 06/02/24 05/20/23 topical cream related skin patches" ergocalciferol (vitamin D2) 1,250 1,250 mcg PO DAILY 05/24/23 06/02/24 06/11/23 mcg (50,000 unit) capsule (Vitamin D2) ferrous sulfate 325 mg (65 mg 325 mg PO QAM 05/24/23 06/02/24 06/19/23 07:00 iron) tablet tirzepatide 5 mg/0.5 mL 5 mg subcut WK 06/02/24 06/02/24 Unknown subcutaneous pen injector (Terry) Past Medical History Medical History (Updated 06/16/24 @ 09:32 by Kalani Birmingham) Anxiety GERD (gastroesophageal reflux disease) suspected diagnosis per pt Hypertension Knee pain Laryngeal cancer SCC, s/p multiple surgical interventions as outlined in 03/2023 ENT note Morbid obesity Reason for weekly Mounjaro Mycosis fungoides Follows with [facility] dermatology, torso and gluteal predominantly, occasional flares on arms No current issues noted PCOS (polycystic ovarian syndrome) Reason for Metformin per patient Pulmonary emboli Multiple 2011, attributed to hormone therapy at that time which has since been d/c Rheumatoid arthritis Seasonal allergies Sezary disease Per records, patient unaware Sleep apnea CPAP (compliant) Vocal fold atrophy Exercise / Class Metabolic Activity III < 4 Walking/Shop/Light housework (one FS: No CP, + SOB (activity limited by knee pain)) Past Surgical History Surgical History (Updated 06/16/24 @ 09:32 by Kalani Birmingham) Expected difficult intubation h/o multiple vocal cord surgeries, rheumatoid arthritis History of repair of vocal cord x4 in total on left side Hx of colonoscopy Hx of knee surgery R/L, Age 35 "To make knees track correctly" Nausea and vomiting after administration of anesthetic agent Status post knee replacement (06/2023) Past Anesthesia History Difficult Airway and No Family Hx of Anesthesia Complications History of PONV No Hx of Motion Sickness and History of PONV (No issues with most recent surgery) Social History Smoking Status: Never smoker Do You Dip or Chew Tobacco: No Hx Alcohol Use: Yes alcohol intake frequency: holidays/special occasions only Hx Substance Use: No substance use type: does not use Review of Systems Patient denies chest pain, shortness of breath, fever, chills, cough, wheezing. Physical Exam Vital Signs BP 127/82 P 79 TEMP 98.2 SP02 95 RESP 18 Physical Full cervical extension range of motion. Full TMJ range of motion. TMD 3 finger breaths Mallampati Score III Dentition: "cracked tooth" repair (molar) Lungs: clear throughout to auscultation Cardiac: regular rate and rhythm, no murmurs noted Spine: normal Carotid arteries: negative bruit Extremities: no LE edema Thick, short neck Lab Results Anesthesia Preop Results Results Anesthesia Widget: WBC 8.35 K/ul (4.8-10.8) 06/13/24 Hgb 13.3 g/dl (12.0-16.0) 06/13/24 Hct 39.6 % (37.0-47.0) 06/13/24 Plt 343 K/uL (130-400) 06/13/24 Na 135 mmol/L (136-145) L 06/13/24 K 4.0 mmol/L (3.5-5.1) 06/13/24 Cl 100 mmol/L (98-107) 06/13/24 CO2 27 mmol/L (21-32) 06/13/24 BUN 13 mg/dl (6-23) 06/13/24 Creat 0.87 mg/dl (0.6-1.2) 06/13/24 Glucose Level 88 mg/dl (70-99(Fasting)) 06/13/24 PT 10.3 Seconds (9.0-12.0) 06/13/24 PTT 27 Seconds (21-31) 06/13/24 INR 0.9 (0.9-1.1) 06/13/24 HA1c 5.9 % (4.5-5.6) H 06/13/24 Urine Color Yellow 06/13/24 Urine Appearance Clear (Clear) 06/13/24 Urine pH 5.5 (4.5-7.5) 06/13/24 Urine Specific [place] 1.010 (1.000-1.030) 06/13/24 Urine Protein Negative (Negative) 06/13/24 Urine Glucose (UA) Negative (Negative) 06/13/24 Urine Ketones Negative (Negative) 06/13/24 Urine Blood 2+ (Negative) H 06/13/24 Urine Nitrite Negative (Negative) 06/13/24 Urine Bilirubin Negative (Negative) 06/13/24 Urine Urobilinogen Negative (Negative) 06/13/24 Urine Leukocyte Esterase Trace (Negative) H 06/13/24 Urine WBC (Auto) 0-5 /hpf (0-5) 06/13/24 Urine RBC (Auto) >20 /hpf (0-2) H 06/13/24 Urine Hyaline Casts (Auto) 0-2 /lpf (0-2) 06/13/24 Urine Epithelial Cells (Auto) 0-2 /hpf (0-2) 06/13/24 Urine Bacteria (Auto) None Seen (None Seen) 06/13/24 Blood Type A Positive 06/13/24 Antibody Screen NEGATIVE 06/13/24 Testing Laboratory Results Urine culture (06/13/24): probable skin teodoro Electrocardiogram Date: 06/13/24 NSR at 82bpm. Rightward axis. No significant change compared to 05/24/2023 per mammography supervisor comparison. Chest X-Ray Date: 06/13/24 Findings: + NAD Cervical Spine Date: 05/24/23 No fracture or subluxation within the cervical spine. The alignment remains intact throughout flexion and extension.
--- NOTE | 2024-07-02 05:20 | History & Physical Bridge Note ---
Date of Service July 02, 2024 History & Physical Bridge Note I have examined the patient, reviewed the History & Physical and in the interval since the performance of the History & Physical I have noted the following changes of clinical significance: no changes noted
--- OUTSIDE RECORDS SUMMARY | 2024-07-02 06:10 | External Medical Summary | Continuity of Care Document ---
Author Name Unknown Organization [id number] Address [address] [place] [phone] Care Team Providers Care Renewable Energy Trader Name Role Phone Pablo Perdue Alexia Primary Care Physici an [phone] Encounter [facility] [id number] Date(s): 06/13/24 - 06/13/24 [facility] [address] [place] [id number] Medicine [address] [place] [id number] Encounter Diagnosis Osteoarthritis of left knee(Discharge Diagnosis) - 06/13/24 Discharge Disposition: Home or Self Care Attending Physician: THERON Kaufman, Eusebio Dotson Referring Physician: MD Gianni, Guille Marcial Allergies, Adverse Reactions, Alerts Substance Criticality Severity Reaction Reaction Severity Status estrogens Active Cats Active Allergy Not found in Search 1 itching Active Grass Active Pollen Active 1dust, gauiar, roaches Medications azelastine-fluticasone 137 mcg-50 mcg/inh nasal spray instill 1 spray into each nostril twice a day Start Date: 02/22/23 Status: Ordered buPROPion 100 mg/12 hours (SR) oral tablet, extended release take 1 tablet by mouth twice a day Start Date: 02/22/23 Status: Ordered CeleBREX 100 mg oral capsule Start: 06/15/22 11:15:00 AM EDT, 2 cap, PO, Daily Start Date: 06/15/22 Status: Ordered clobetasol topical 0.05% solution Start: 10/18/11 1:44:00 PM EST, 1 appl, topical, Daily, Disp# 50 mL, Refills: 11, Apply to affectedareas daily as directed, Pharmacy: [id number] Start Date: 10/18/11 Status: Ordered ergocalciferol 1.25 mg (50,000 intl units) oral capsule TAKE 1 CAPSULE BY MOUTH TWICE A WEEK Start Date: 02/22/23 Status: Ordered fenofibrate 67 mg oral capsule Start: 04/04/24 10:42:00 AM EDT, 1 cap, PO, Daily Start Date: 04/04/24 Status: Ordered FeroSul 325 mg (65 mg elemental iron) oral tablet Start: 05/24/23 2:18:00 PM EDT, 1 tab, PO, Daily Start Date: 05/24/23 Status: Ordered Flonase 50 mcg/inh nasal spray Start: 06/15/22 11:17:00 AM EDT, 1 spray, each nostril, Daily Start Date: 06/15/22 Status: Ordered FLUoxetine 20 mg oral capsule take 3 capsules by mouth once daily Start Date: 02/22/23 Status: Ordered folic acid 1 mg oral tablet take 1 tablet by mouth once daily Start Date: 02/22/23 Status: Ordered gabapentin 300 mg oral capsule Start: 06/15/22 11:18:00 AM EDT, 100 in am, 300 at night Start Date: 06/15/22 Status: Ordered hydroCHLOROthiazide-losartan 12.5 mg-50 mg oral tablet Start: 06/15/22 11:16:00 AM EDT, 1 tab, PO, Daily, 25 mg Start Date: 06/15/22 Status: Ordered metformin 500 mg oral tablet Start: 06/06/13 10:05:00 AM EDT, 2 tab, PO, bid, 1000mg BID Start Date: 06/06/13 Status: Ordered methotrexate Start: 03/11/18 4:06:00 PM EDT, 1 tab, PO, 2.5-7 tabs per a week Start Date: 03/11/18 Status: Ordered Mounjaro 5 mg/0.5 mL subcutaneous solution Start: 06/13/24 2:57:00 PM EDT Start Date: 06/13/24 Status: Ordered omeprazole 40 mg oral delayed release capsule Start: 06/15/22 11:17:00 AM EDT, 1 cap, PO, Daily Start Date: 06/15/22 Status: Ordered Singulair 4 mg oral granule Start: 06/15/22 11:17:00 AM EDT, 1 each, PO, qPM, 10mg Start Date: 06/15/22 Status: Ordered Targretin 1% topical gel Start: 04/20/16 8:47:37 AM EDT, See Instructions, Disp# 60, Refills: 10, APPLY EVERY OTHER DAY TO START THEN SLOWLY INCREASE TO TWICE A DAY ASTOLERATED, Pharmacy: [facility] [place], APPLY EVERYOTHER DAY TO START THEN SLOWLY INCREASE TO TWICE A DAY ASTOLERATED Start Date: 04/20/16 Status: Ordered Valchlor 0.016% topical gel Start: 05/24/23 2:18:00 PM EDT Start Date: 05/24/23 Status: Ordered ZyrTEC 10 mg oral tablet Start: 06/15/22 11:17:00 AM EDT, 1 tab, PO, Daily, PRN: as needed for allergy symptoms Start Date: 06/15/22 Status: Ordered Mental Status 06/13/24 Barriers to Learning one year None evide nt Mandatory Health Literacy Documentation Yes Health Literacy Communication Barriers N ever Primary Language [place] Problem List Condition Confirmation Course Effective Dates Status H ealth Status Informant Anxiety Confirmed Active Arthritis Confirmed Active HTN (hypertension) Confirmed Active Osteoarthritis of left knee Confirmed Active Right knee DJD Confirmed Active PCOS (polycystic ovarian syndrome) Confirmed Active Diagnosis Diagnosis Type Effective Dates Health Status Clinical Service Informant Osteoarthritis of left knee Discharge Diagnosis 06/13/24 Procedures Procedure Date Related Diagnosis Body Site Status Punch biopsy 1 06/15/22 Completed Shave biopsy 06/15/22 Completed Surgery 2 Completed Wedge excision of skin of na il fold (eg, for ingrown toenail) Comple vj 16 mm 2left vocal cord surgery x 4 Vital Signs Most recent to oldest [Reference Range]: 1 Height 166 cm (06/13/24 2:53 PM) Patient Weight 125.4 kg (06/13/24 2:53 PM) Body Mass Index 45.51 kg/m2 (06/13/24 2:53 PM) Temperature [36.5-37.9 DegC] 36.4 DegC *LOW* (06/13/24 2:53 PM) Heart Rate 84 bpm (06/13/24 2:53 PM) Respiratory Rate 18 br/min (06/13/24 2:53 PM) Blood Pressure 140/90mmHg (06/13/24 2:53 PM) Cuff Pulse Pressure 50 mmHg (06/13/24 2:53 PM) Social History Social History Type Response Smoking Status Never smoked cigaret kimberly Sex Female Sex Representation Female (finding) Pre-OP H & P * THERON Kaufman, Eusebio D: PERFORM, MODIFY, MODIFY, MODIFY Event Display: Pre-OP H & P Authored Date: [id number] PRE-OPERATIVE HISTORY AND PHYSICAL Name: RACQUEL BURGOS Patient Number: [id number] : 1970 Date of Service: 06/13/2024 PRE-OP Diagnosis: Left knee DJD with retained screws Planned Procedure: Left knee total knee arthroplasty with removal of deep hardware Chief Complaint: Left knee pain History of Present Illness (including history relevant to procedure): This 53-year-old female presents today for her preoperative history and physical. She is scheduled to undergo a left knee total knee arthroplasty with removal of deep hardware on 07/02/[address] Archer. Patient has a longstanding history of left knee pain. Symptoms were reasonably tolerable for many years. She previously had Erin osteotomies done approximately 17 years ago with reasonable improvement in her pain. She has had increasing discomfort in the left knee over the past 2 to 3 years. Her left knee has now become intolerable. She states she cannot walk through the grocery store, [employer], or [employer]. She has to take the motorized scooter. If she does walk through the store, she states she leaves crying because of the pain. She feels as though the right leg will buckle due to the pain. She notes lossof motion of the left knee. No numbness or tingling. Preoperative imaging has been obtained. She elects to proceed with surgical intervention in hopes of improving her pain and function. Review Of Systems: A total of 10 systems were reviewed and are significant only for below stated conditions. Family history: Significant for cancer, stroke, and diabetes. Social history: The patient is . Employed. No tobacco use, occasional EtOH use. Past Medical History: Problems: Osteoarthritis of left knee Right knee DJD Anxiety HTN (hypertension) Elevated cholesterol Sleep apnea Use of CPAP History of multiple PE in 2011 Arthritis Hypothyroidism Degenerative disc disease of the spine Obesity GERD Vocal cord cancer Skin cancer PCOS (polycystic ovarian syndrome) Procedure History Procedure Procedure Date Comments Wedge excision of skin of nail fold (eg, for ingrown toenail) Surgery - left vocal cord cancer surgery x 4 Shave biopsy 06/15/2022 Punch biopsy Right knee Erin osteotomy Left knee Erin osteotomy Right knee TKA 06/15/202206/2023 - 6 mm Allergies and Sensitivities: Allergy Not found in Search(itching) estrogens Cats Pollen Grass Current Home Meds: (Last Updated 06/13 15:04) FLUoxetine (FLUoxetine 20 mg oral capsule) take 3 capsules by mouth once daily azelastine-fluticasone nasal (azelastine-fluticasone 137 mcg-50 mcg/inh nasal spray) instill 1 spray into each nostril twice a day bexarotene topical (Targretin 1% topical gel) APPLY EVERY OTHER DAY TO START THEN SLOWLY INCREASE TO TWICE A DAY ASTOLERATED buPROPion (buPROPion 100 mg/12 hours (SR) oral tablet, extended release) take 1 tablet by mouth twice a day celecoxib (CeleBREX 100 mg oral capsule) 200 mg PO Daily cetirizine (ZyrTEC 10 mg oral tablet) 10 mg PO Daily PRN: as needed for allergy symptoms clobetasol topical (clobetasol topical 0.05% solution) 1 appl topical Daily Apply to affected areasdaily as directed ergocalciferol (ergocalciferol 1.25 mg (50,000 intl units) oral capsule) TAKE 1 CAPSULE BY MOUTH TWICE A WEEK fenofibrate (fenofibrate 67 mg oral capsule) 67 mg PO Daily ferrous sulfate (FeroSul 325 mg (65 mg elemental iron) oral tablet) 325 mg PO Daily fluticasone nasal (Flonase 50 mcg/inh nasal spray) 1 spray each nostril Daily folic acid (folic acid 1 mg oral tablet) take 1 tablet by mouth once daily gabapentin (gabapentin 300 mg oral capsule) 100 in am, 300 at night hydrochlorothiazide-losartan (hydroCHLOROthiazide-losartan 12.5 mg-50 mg oral tablet) 1 tab PO Daily 25 mg mechlorethamine topical (Valchlor 0.016% topical gel) metFORMIN (metformin 500 mg oral tablet) 1,000 mg PO bid 1000mg BID methotrexate 1 tab PO 2.5-7 tabs per a week montelukast (Singulair 4 mg oral granule) 4 mg PO qPM 10mg omeprazole (omeprazole 40 mg oral delayed release capsule) 40 mg PO Daily tirzepatide (Mounjaro 5 mg/0.5 mL subcutaneous solution) Vitals: Last Updated 06/13/24 14:53 Weights: Last Updated 06/13/24 14:53 Date Temp Pulse BP RR SpO2 FIO2 Date Wt(kg) Wt(lb) 06/13 14:53 36.4 84 140/90 18 98 06/13 14:53 125.4 276 06/13 14:53 125.4 276 24 Hr Tmax: 36.4 at 06/13 14:53 Initial Wt: 06/13 125.4 kg 276 lb Physical Exam: (relevant to the procedure, including heart and lung evaluation) General: Well-developed, well-nourished, middle-aged female, in no acute distress. Sitting in a chair. Alert and oriented. HEENT: Normocephalic, atraumatic. Eyes PERRLA, EOMI. Nares patent bilaterally without nasal drainage. Oropharynx with moist oral mucosa. Good dentition. Neck: No JVD. Cardiac: RRR. No MGR. Peripheral pulses are 2+. Lungs: Clear to auscultation bilaterally. No crackles, rhonchi, or wheezing. Good air movement. Abdomen: Morbidly obese. Bowel sounds present x 4. Soft nontender. No organomegaly. No masses. Extremities: Left knee evaluation reveals no obvious asymmetry or deformity. She has no intra-articular effusion. Range of motion reveals a lack of 5 to 8 degrees of terminal extension. Flexion to only 87 degrees. Strength is 5/5 with fairly good quad tone. Screw heads are palpable over the anterior tibia. Stable collateral ligaments. No palpable defect in the patellar tendon or quadriceps tendon. Ambulating today with a slight limp. Neuro: Gross sensation is intact across the left lower extremity by soft touch. Skin: Warm and dry with good turgor. No rashes. No ecchymosis or erythema. No intra-articular effusion at this time. Studies of radiology results (relevant to the procedure): Radiographic imaging previously obtained of the left knee shows end-stage DJD of the left knee. Periarticular osteophytes, subchondral sclerosis, and joint space narrowing are all present. Retained screws are present in the tibia. ASSESSMENT: Left knee DJD with retained screws Plan: The patient was educated regarding today's findings. Approximately 30 minutes was spent reviewing operative procedure, postoperative recovery, physical therapy requirements, and medication use.Postoperative prescriptions for Percocet and Eliquis will be sent to her pharmacy upon discharge from the hospital. She has not had any further issues with PEs or DVTs since her episode in 2011. Anticipate discharge to home with home health services. She would like to do that for 2 weeks and then transition to therapy here. Prescription has been provided. Importance of ice and elevation along with compression was discussed. PDMP was checked and there are no concerning findings. She is currentlyasymptomatic of any COVID-19 or influenza symptoms. Her medical clearance is scheduled for next week. She will attend PAT today for her preoperative lab work, EKG, and chest x-ray. Postop follow-up appointment has been made with me for July 17. This dictation has been completed using [employer] text voice recognition software. Grammatical errors, omissions, insertions, and misspellings may be present due to the limitations of the software. Electronic Signature on File Electronically Reviewed/Signed by: Eusebio Kaufman PA-C Author Signature Dt/Tm:06/13/2024 05:40 PM Division of Sports Medicine Electronically Reviewed/Signed by: Guille Archer MD Cosigner Signature Dt/Tm: 06/13/2024 05:54 PM Milk Hauler for Clinical Affairs, [facility] [place] Professor in Orthopaedics Online Advertising Manager, [facility] CDS Patient Care team information Care Team Personnel Name: DO Perdue Andrea Michelle Position: Referring Member Role: Primary Care Provider Address: [place] [address] [place] Care Team Related Persons Name: GURMEET JONES Name: NEAL ARNDT
[2024-07-02] MEDS ORDERED: EPINEPHrine INJ 1 MG/ML AMP ONE (06:28)
[2024-07-02] MEDS ORDERED: ROPIVACAINE 0.5% 5 MG/ML 30 ML VIAL ONE (06:28)
[2024-07-02] MEDS ORDERED: BUPIVACAINE 0.5 % 5 MG/1 ML PF 10ML VIAL ONE (06:28)
[2024-07-02] MEDS: LR 500ML BOLUS, THEN 15ML/HR IV SCH (07:15)
[2024-07-02] MEDS: LR 60ML/HR IV SCH (07:15)
[2024-07-02] MEDS ORDERED: GLYCOPYRROLATE 0.2 MG/ML VIAL ONE (07:30)
[2024-07-02] MEDS ORDERED: MIDAZOLAM HCL 1 MG/ML 2ML VIAL ONE ×3 (07:30→09:13)
[2024-07-02] MEDS ORDERED: ONDANSETRON INJ 2 MG/ML 2 ML VIAL ONE (07:30)
[2024-07-02] MEDS ORDERED: PROPOFOL IV EMULSION 10 MG/ML 100 ML VIAL IV ONE (08:02)
[2024-07-02] MEDS: TRANEXAMIC ACID 1,000 MG **IV Pre-op IV SCH (08:39)
[2024-07-02] MEDS ORDERED: fentaNYL citrate PF 100 MCG/2 ML VIAL IV PRN (09:08)
[2024-07-02] MEDS ORDERED: ePHEDrine sulfate 50 MG/ML AMP IV PRN (09:08)
[2024-07-02] MEDS ORDERED: NALOXONE HCL 0.4 MG/1 ML VIAL/CARP IV PRN ×2 (09:08→12:23)
[2024-07-02] MEDS ORDERED: ONDANSETRON INJ 2 MG/ML 2 ML VIAL IV PRN ×2 (09:08→12:23)
[2024-07-02] MEDS ORDERED: PROMETHAZINE HCL 6.25 MG in SODIUM CHLORIDE 0.9% 50 ML IV PRN (09:08)
[2024-07-02] MEDS ORDERED: FLUMAZENIL 0.1 MG/1 ML 10 ML VIAL IV PRN (09:08)
[2024-07-02] MEDS ORDERED: ATROPINE SULFATE 0.1 MG/ML 10ML SYR IV PRN (09:08)
[2024-07-02] MEDS: ceFAZolin 3000MG 3,000 MG/72.5 ML BAG IV SCH (09:09)
[2024-07-02] MEDS ORDERED: KETAMINE HCL 10MG/ML SYR ONE (09:18)
[2024-07-02] MEDS ORDERED: fentaNYL citrate PF 100 MCG/2 ML VIAL ONE (09:20)
[2024-07-02] MEDS: ORTHO JOINT ANESTHETIC ONE (09:41)
[2024-07-02] MEDS: ROPIV 0.5% 246mg, Ketorolac 30mg, EPINEPHrine 0.5mg in NSS INFIL SCH (09:41)
[2024-07-02] MEDS: TRANEXAMIC ACID 1,000 MG **IV Intra-op IV SCH (10:30)
--- NOTE | 2024-07-02 11:00 | Post Operative Brief Note ---
Immediate Post Op Note Date of Surgery July 02, 2024 Pre & Post Diagnosis Operation Date: 07/02/24 08:50 <No data on this case meets the specified criteria> Severe osteoarthritis left knee with arthrofibrosis and minimal range of motion pre and postop diagnosis same I identified the patient and participated in the time-out.: Yes Procedure Operation Date: 07/02/24 08:50 <No data on this case meets the specified criteria> Extensive release extensor mechanism and scar tissue secondary to Erin osteotomy removal of screw tibia and cemented total knee replacement left knee. Surgeon Guille Archer MD Director Funds Development Lulu/Ayla Sorensen Estimated Blood Loss 50 Findings Consistent with Post-Op Diagnosis Severe arthrofibrosis range of motion -15-50 severe osteoarthritis left knee Fluids See anesthesia report Complications None
--- NOTE | 2024-07-02 11:05 | Operative Report ---
Post Operative Report Pre & Post Diagnosis Operation Date: 07/02/24 08:50 <No data on this case meets the specified criteria> Severe osteoarthritis left knee with flexion varus deformity arthrofibrosis left knee I identified the patient and participated in the time-out.: Yes Procedure Operation Date: 07/02/24 08:50 <No data on this case meets the specified criteria> Cemented left total knee replacement with extensive extensor mechanism release release of scar tissue removal of deep hardware left knee Surgeon Guille Archer MD City Carrier Lulu/Ayla Sorensen Estimated Blood Loss 50 Findings Consistent with Post-Op Diagnosis Severe arthrofibrosis range of motion -20 to 55 degrees. Severe entrapment of extensor mechanism. Tricompartmental osteoarthritis. Left knee. Fluids See anesthesia report Specimens Bone pathology Drains None Complications None Indications Severe pain limited range of motion marked obstruction by x-ray. Description of Procedure After the patient was appropriate notified site verified consent verified antibiotics confirmed to be given the left lower extremity was examined revealing range of motion 0- 20 to 55 degrees with marked entrapment of the extensor mechanism. Left lower extremity was then prepped and draped in usual routine fashion. Tourniquet inflated to 275 mmHg after exsanguination limb with a rubber urgent branch for total of 71 minutes. Lower incision was utilized for about two thirds extended proximally. She has a history of having a Erin osteotomy with 2 screws. Once the capsule was identified arthrotomy was performed there was extensive incarceration of the extensor lauren required a lot of release. This was carefully done to not damage the patellar tendon attachment to the proximal tibia. Once the patella was able to be everted the synovectomy was completed osteophytes removed around the margin of the femur and tibia. The distal femur was then entered after the cruciates were resected and then the tibia subluxated distal femur was resected 11 mm tibia 4 mm then then this required revision of 2 on the tibia and revision of 2 on the femur and then backed out as good extension gap. The femur was sized to a size 4 appropriate cutting block was applied and the anterior posterior condylar and chamfer cuts made the flexion gap was then checked and was excellent. The posterior capsule was injected with Ortho mix. The box cut was then made a size 4 fit well. The tibia was then broached and reamed to a size 3 that required the proximal screw to be removed this was carefully and tediously dissected out and ultimately removed. The tibial broaching and reaming was then completed. Size 3 tray with a size 4 x 5 mm thick tibia was placed and was excellent. The patella tracked well. The patella was resected leaving 14 mm in appropriate seating button with 35 seated and it tracked well. Ortho mix was then injected all around the knee and in the trial implants were removed the wound was then irrigated with Pulsavac and Betadine and then the permanent cemented into position. The order of cement fixation was tibia femur and patella in that order at 12 minutes the tourniquet was deflated at 14 minutes the knee was inspected no cement removal required wound was irrigated with Betadine Pulsavac Betadine and a permanent liner seated the knee reduced and closed 40 degrees of flexion with #2 Vicryl for the capsule layer 2-0 Vicryl for the subcutaneous layer and stainless to clips for skin. Appropriate dressing applied the patient transferred to cover room in satisfactory He tolerated procedure well. Summary of implants ATT UNE total knee system by [employer] for left femur posterior cruciate substituting size 3 rotating platform tray 35 patella for x 5 mm thick rotating platform insert posterior cruciate substituting. 2 bags of Palacos G cement. EBL was 50 cc or less crystalloid per anesthesia. Bone pathology pending. DVT prophylaxis per protocol. I attest to the content of the Intraoperative Record and any orders documented therein. Any exceptions are noted below.
--- NOTE | 2024-07-02 11:07 | Discharge Summary ---
Date of Service July 03, 2024 Admission HPI Per Admitting Provider Severe osteoarthritis left knee Principal Diagnosis Severe osteoarthritis left knee Discharge Data Allergies Allergy/AdvReac Type Severity Reaction Status Date / Time Estrogens AdvReac Unknown hx blood Verified 07/02/24 06:53 clots Vaccinations None Consultations None Procedures Performed Operation Date: 07/02/24 08:50 Actual Procedures p Left Total Knee Arthroplasty, Removal Deep Hardware(Left) - Guille Archer MD Ordered Studies 07/02/24 05:00 US - OR guided needle placemen Routine Hospital Course (1) Status post left knee replacement: Care plan for total knee replacement left knee Total Time Total Time Spent Total Time Spent (In Minutes): 5 Discharge Plan Discharge Items Reason For Visit: Osteoarthritis Left Knee with Retained Hardware Discharge Diagnosis: Same Condition on Discharge: Good Activity: Per Instructions section Lifting: No more than 5 pounds Bathing: Keep incision dry Sexual Activity: Wait until after follow-up appointment Exercise/Sports: Wait until after follow-up appointment Call non-emergency contact if: your temperature is above 101.5, your wound has increased redness, your wound has increased drainage and your wound pain has increased Follow-up/Referrals: Eusebio Kaufman PA-C [Physician [employer]] - 07/17/24 2:00 pm Pablo Perdue DO [Primary Care Provider] - Addtl Attending Provider Instructions: New Medicine: * You will likely be taking one or more of these medications: 1. Percocet - Take, as directed, when you need it, every four to six hours to control your pain. 2. Iron Sulfate - Take 1x each day for the month after surgery to help you replace the blood lost during surgery. 3. Eliquis- Thins your blood to lessen the chance of forming a blood clot. * The most common side effects of pain medicine and iron are nausea and constipation. If nausea or constipation is too much of a problem or if you have any questions about your new medicines or doses, call [facility] at . We will try to help you manage these issues. "VERY IMPORTANT TO READ AND REVIEW" Blood Clots and Blood Thinning Medicine: * You are given Eliquis during the immediate post-operative period to lessen the risk of blood clots forming in your legs and/or lungs. It is usually given for 4 weeks after surgery. Pain: * The immediate post-operative period after knee replacement surgery is often quite painful. * You are given a prescription for pain medicine. You should take it, as directed, when you need it, especially before physical therapy and before going to bed. Pain that interferes with sleep is very common and can last several months. * You will likely need pain medicine for the first four to six weeks. It will not stop all of the pain. The pain will lessen and as you feel better, you may change to milder pain medicine such as Tylenol. * The most common side effects of pain medicine are nausea and constipation, so don't take more than you need. Physical Therapy: * You will have physical therapy two or three times each week for four to six weeks after your surgery in order to regain your knee range of motion and to retrain your knee to work properly. * It is just as important to make sure you are getting your knee perfectly straight as it is to regain your knee bend. * Taking a pain pill an hour before therapy can help you have a more productive and comfortable therapy session if needed. Home Exercise: * You were shown a series of exercises (heel props, heel slides, etc.) in the hospital. Do these exercises three to four times each day including the exercises you were shown in physical therapy. Walking: * Get up and walk several times each day. For the first four weeks, try not to stand or walk for more than one hour at a time. If you do stand or walk for more than one hour, you will not hurt anything, but your knee and leg will likely swell. * As you feel comfortable, you may change from the walker or crutches to a cane and then to independent walking. SELF CARE INSTRUCTIONS AFTER TOTAL KNEE REPLACEMENT A. You may need to continue a physical therapy program after discharge from the hospital. There are several options available to you. Your doctor will assist you in selecting the best one for you. 1. An out-patient facility 2 to 3 times a week for therapy or home therapy. 2. Continue working on all exercises taught to you in the hospital. Your goals should be to increase bending of your knee to 90 degrees and beyond and to fully straighten your knee. B. You may progress at your own pace from walking with a walker or crutches to a cane; then to no assistive devices. C. Make walking a part of your daily routine. Be up as much as comfortable with rest periods throughout the day. Rest with leg elevation is very important. Use the ice wrap frequently for the first 3-4 weeks. D. There are no restrictions on activities. You may ride in a car, shop, participate in utility systems repairer operator and all social activities. E. Wear the long elastic stockings (LUL hose) 20 hours a day for six weeks after surgery. They can be removed several times a day for laundering and for a shower. F. Do not place a pillow behind your knee when resting. A pillow at your ankle is okay. VERY IMPORTANT TO READ AND REVIEW A. Take Eliquis (blood thinning medication) as directed by your doctor. B. There are a few signs you need to watch for after you are home. Call [facility] if you notice any of the followin. Increased severe knee pain. Some pain is expected especially when you exercise. 2. Increased swelling in your leg or knee; pain or swelling of the calf muscle in either lower leg. 3. Any fluid drainage from the incision. 4. Shortness of breath or chest pain. C. Please call [facility] at if you have any concerns or questions about your operation or recovery. The doctor or his nurse will return your call promptly. D. You must take antibiotics before dental work, bladder, bowel or other surgery. Call the office to obtain a prescription at least 2 days prior to your appointment. * CALL IF INCREASED PAIN, REDNESS, DRAINAGE OR FEVER GREATER THAT 101. * Sutures should be removed 12-14 days after surgery unless you are on chronic steroids, then it will be 14-18 days after surgery. Call your doctor if: * Temperature above 101 degrees F. * Pain not relieved by pain medicine ordered. * Increased drainage or redness from incision. * Notify your doctor with any questions or concerns. DIET: * Resume previous diet. MEDICATIONS: * Please take your prescriptions as instructed at your pre-op appointment and/or see medication discharge instructions listed above. * If concerns develop, call your physician's office at . SPECIAL CARE INSTRUCTIONS: * Ice/Elevate as instructed. * Keep dressing clean, dry, intact. * Your surgical extremity may be discolored due to prepping agents used on the skin. A bluish-green tint is a normal variant and should not cause alarm. Call your doctor at [phone] if: * Temperature above 101 degrees * Pain not relieved by pain medicine ordered * There is increased drainage or redness from any incision * You have any unanswered questions, problems or concerns. FOLLOW UP VISIT: * If not already scheduled, please call the office at to schedule a follow-up appointment. Start your Eliquis tomorrow night with dinner. Take it 2 times per day for 4 weeks to prevent clots Use your knee immobilizer when out of bed on and Sunday. It may be discontinued entirely on Sunday morning Use your walker for ambulation Ice and elevate the knee frequently to reduce pain and swelling Leave the postsurgical dressing in place through the . It can be changed on Sunday by home health if needed for soiling Pending Studies at Discharge: No (Bone pathology) Stand-Alone Forms: My [facility] Medications and DC Order Prescriptions: No Action celecoxib 200 mg Capsule 200 mg PO QAM metformin 500 mg Tablet 1,000 mg PO BID cetirizine [Zyrtec] 10 mg Tablet 10 mg PO BID PRN (Reason: Allergy Symptoms) Patient Comments: alternates with other OTC allergy meds fexofenadine [Inessa Allergy] 180 mg Tablet 180 mg PO BID PRN (Reason: Allergy Symptoms) Patient Comments: alternates with other OTC allergy meds folic acid 400 mcg Tablet 0.4 mg PO QAM omeprazole 40 mg Capsule,Delayed Release(Dr/Ec) 40 mg PO QAM triamcinolone acetonide 0.1 % Cream 1 applic TOPICAL DAILY PRN (Reason: "stress related skin patches") bupropion HCl 100 mg Tablet 100 mg PO BID methotrexate sodium 2.5 mg Tablet 15 mg PO Q7D Patient Comments: montelukast 10 mg Tablet 10 mg PO QAM gabapentin 100 mg Capsule 100 - 300 mg PO UD Rx Instructions: 100mg QAM and 300mg HS azelastine 137 mcg (0.1 %) Aerosol,[place] 1 - 2 spray INTRANASAL HS PRN (Reason: Allergy Symptoms) Rx Instructions: administer into each nostril losartan-hydrochlorothiazide 50-12.5 mg Tablet 1 tab PO QAM fluoxetine 20 mg Capsule 60 mg PO QAM fluticasone propionate 50 mcg/actuation [place],Suspension 2 spray INTRANASAL QAM Rx Instructions: administer into each nostril loratadine 10 mg Tablet 10 mg PO BID PRN (Reason: Allergy Symptoms) Patient Comments: alternates with other OTC allergy meds Valchlor 0.016 % Gel 1 applic TOPICAL DAILY ferrous sulfate 325 mg (65 mg iron) Tablet 325 mg PO QAM ergocalciferol (vitamin D2) [Vitamin D2] 1,250 mcg (50,000 unit) Capsule 1,250 mcg PO DAILY Rx Instructions: twice weekly Mounjaro 5 mg/0.5 mL Pen Injector 5 mg SUBCUT WK Admission Data Admit Date/Time: 07/02/24 11:21 Attending Provider: Guille Archer Admit Provider: Guille Archer Primary Care Provider: Pablo Perdue Other Providers: [facility],Home Healthcare
--- NOTE | 2024-07-02 11:09 | Orthopedic Progress Note ---
Date of Service July 02, 2024 Orthopedic Progress Note Patient underwent left total knee replacement. Tolerated procedure well. Denies chest pain shortness of breath fever chills nausea vomiting headache. Vital signs are stable she is afebrile. Next of kin Nicolas was notified. At this point I will dressing clean dry and intact everything looks good. Waiting for spinal are off. X-ray pending in recovery room.
--- NOTE | 2024-07-02 11:24 | Operative Report ---
Post Operative Report Pre & Post Diagnosis Operation Date: 07/02/24 08:50 Pre-Op Diagnosis: Osteoarthritis Left Knee with Retained Hardware Post-Op Diagnosis: Osteoarthritis Left Knee with Retained Hardware I identified the patient and participated in the time-out.: Yes Procedure Operation Date: 07/02/24 08:50 Actual Procedures p Left Total Knee Arthroplasty, (Left) - Guille Archer MD s Removal Deep Hardware(Left) - Guille Archer MD Surgeon Guille Archer M.D. Emergency Services Dispatcher Lulu/Ayla Sorensen Estimated Blood Loss 50 Findings Consistent with Post-Op Diagnosis Specimens bone and soft tissue Anesthesia Type MAC Spinal Regional Description of Procedure Patient was taken to the operating room, placed under IV sedation and spinal anesthesia, given preoperatively peripheral nerve block of left lower extremity. She was given 1 gm IV Ancef preoperatively. She was given 1 gm IV TXA preoperatively. I was present during the entire case, please see Dr. Archer's operative report for further detail. Patient was awakened and taken to the recovery room in stable condition. I attest to the content of the Intraoperative Record and any orders documented therein. Any exceptions are noted below.
--- NOTE | 2024-07-02 11:26 | Operative Report ---
Post Operative Report Pre & Post Diagnosis Operation Date: 07/02/24 08:50 Pre-Op Diagnosis: Osteoarthritis Left Knee with Retained Hardware Post-Op Diagnosis: Osteoarthritis Left Knee with Retained Hardware I identified the patient and participated in the time-out.: Yes Procedure Operation Date: 07/02/24 08:50 Actual Procedures p Left Total Knee Arthroplasty, (Left) - Guille Archer MD s Removal Deep Hardware(Left) - Guille Archer MD Surgeon Guille Archer MD Lead Esthetician Lulu/Ayla Sorensen Estimated Blood Loss 50 Findings Consistent with Post-Op Diagnosis Specimens Bone pathology Disposition Accompanied Patient To Recovery: Yes Description of Procedure The patient was taken to the operating room, the operative extremity was prepped and draped in usual sterile fashion. Patient underwent left total knee arthroplasty with removal of screw from previous Erin osteotomy. Please see Dr. Archer's operative report for full details. I was present for the duration of case from initial patient positioning through wound closure and dressing application, assisted with positioning, soft tissue retraction, hardware placement, wound closure, and dressing placement. Patient was taken to the postoperative recovery unit in stable condition. I attest to the content of the Intraoperative Record and any orders documented therein. Any exceptions are noted below.
--- NOTE | 2024-07-02 11:50 | Anesthesiology Progress Note ---
Date of Service July 02, 2024 Anesthesia Post Procedure Vital Signs Vital Signs: Temp Pulse Pulse Resp BP Pulse Ox O2 Del Method 07/02/24 11:45 63 14 133/66 95 Room Air 07/02/24 11:40 36.4 C L 65 14 141/65 H 96 Room Air 07/02/24 11:30 65 15 143/73 H 98 Oxymask 07/02/24 11:20 70 15 117/68 99 Oxymask 07/02/24 11:11 36.6 C 76 15 125/78 96 Oxymask 07/02/24 06:45 36.5 C 80 20 153/86 H 97 Room Air O2 Flow Rate 07/02/24 11:45 07/02/24 11:40 07/02/24 11:30 2 07/02/24 11:20 4 07/02/24 11:11 13 07/02/24 06:45 Transfer of Care Handoff Completed per policy Notes Mental Status: alert / awake / arousable Patient Amnestic to Procedure: Yes Nausea / Vomiting: adequately controlled Pain: adequately controlled Airway Patency, RR, SpO2: stable & adequate BP & HR: stable & adequate Hydration State: stable & adequate Neuraxial Anesthesia: was administered and sensory block is resolving Anesthetic Complications: no major complications apparent
[2024-07-02] MEDS ORDERED: AZELASTINE HCL 0.1% NASAL 200 SPRAYS/27,400 MCG BTL NAE PRN (12:23)
[2024-07-02] MEDS ORDERED: diphenhydrAMINE Capsule 25 MG CAP PO PRN (12:23)
[2024-07-02] MEDS ORDERED: diphenhydrAMINE 50 MG/ML VIAL IV PRN (12:23)
[2024-07-02] MEDS ORDERED: HYDROmorphone INJ 0.5 MG/0.5 ML SYR IV PRN (12:23)
[2024-07-02] MEDS ORDERED: bisacodyL 10 MG SUPP PR PRN (12:23)
[2024-07-02] MEDS ORDERED: MAGNESIUM HYDROXIDE SUSP 30 ML UDC PO PRN (12:23)
[2024-07-02] MEDS ORDERED: CETIRIZINE HCL 10 MG TABLET PO PRN (12:23)
[2024-07-02] MEDS ORDERED: HYDROmorphone INJ 1 MG/ML SYRINGE IV PRN (12:23)
[2024-07-02] MEDS ORDERED: LORATADINE 10 MG TAB PO PRN (12:23)
[2024-07-02] MEDS: SODIUM CHLORIDE 0.9% 1,000 ML IV SCH (13:27)
[2024-07-02] MEDS: ACETAMINOPHEN 500 MG TAB PO SCH (13:27)
[2024-07-02] MEDS: GABAPENTIN 100 MG CAP PO SCH (13:27)
[2024-07-02] MEDS: KETOROLAC TROMETHAMINE 15 MG/ML VIAL IV SCH (13:28)
[2024-07-02] MEDS: ERGOCALCIFEROL 1250 MCG (50,000 UNITS) CAP PO SCH (13:28)
--- NOTE | 2024-07-02 13:59 | XRay Report ---
XR knee LT 1 or 2V routine CLINICAL HISTORY: S/P L TKA COMPARISON: Left knee radiographs April 04, 2024. FINDINGS: Alignment of the total left knee arthroplasty is anatomic. There is no periprosthetic frac ture or unexpected radiopaque foreign body. There are skin marc. A left temporal screw is in place . There are skin marc. IMPRESSION: Expected findings following total left knee arthroplasty. ACT 112: Negative or not required by law. Electronically signed by: Kb Campos M.D. 07/02/2024 1:58 PM
--- NOTE | 2024-07-02 14:06 | Orthopedic Progress Note ---
Date of Service July 02, 2024 Postop check is doing well denies any chest pain shortness of breath fever chills nausea vomiting or headache. Vital signs are stable she is afebrile. Neurovascular check from sciatic nerve is normal can do straight leg raise can do ankle pumps. Wound dressing clean dry and intact. Eating and drinking well. This point with normal saline lock IV fluid.. Emphasized need to do exercises. Reinforced the sheet that was there. Will see her early tomorrow to get her discharge. Start anticoagulation tomorrow. Assessment & Plan Admission and Anticipated Discharge Date Admission Date: July 02, 2024
[2024-07-02] MEDS: ceFAZolin 2000MG 2,000 MG/15 ML SYR IV SCH (18:00)
[2024-07-02] MEDS: DOCUSATE SODIUM 100 MG CAP PO SCH (20:43)
[2024-07-02] MEDS: SENNA 8.6 MG TAB PO SCH (20:43)
[2024-07-02] MEDS: GABAPENTIN 300 MG CAP PO SCH (20:44)
[2024-07-02] MEDS: buPROPion HCl 100 MG TABLET PO SCH (20:44)
[2024-07-02] MEDS: oxyCODONE HCL IR 5 MG TAB (IMMEDIATE RELEASE) PO PRN (22:53)
[2024-07-03 02:57] VITALS: O2SAT 96
--- NOTE | 2024-07-03 06:22 | Orthopedic Progress Note ---
Date of Service July 03, 2024 Assessment & Plan Admission and Anticipated Discharge Date Admission Date: July 02, 2024 Orthopedic Progress Note doing well vss. wound dressing clean and dry . start eliquis today. Discharge after PT and dressing change by PA.
[2024-07-03 07:02] VITALS: BP 109/71; PULSE 70; RESP 16; TEMP 98.8
[2024-07-03 07:19] LABS: Hematocrit (blood only) 32.8 % (37.0-47.0); Mean Corpuscular Hemoglobin 29.3 pg (25.0-34.0); Mean Corpuscular Hgb Conc 33.5 g/dL (32.0-36.0); Mean Corpuscular Volume 87.5 fL (80.0-100.0); Mean Platelet Volume 10.1 fL (9.4-12.4); Platelet Count 255 K/uL (130-400); RDW Coefficient of Variation 15.2 % (11.5-14.5); Red Blood Count 3.75 M/uL (4.20-5.40); White Blood Count 8.44 K/ul (4.8-10.8)
[2024-07-03 07:24] LABS: Calcium 8.1 mg/dl (8.6-10.3); Creatinine Clr Calc Pharmacy 94.1 ml/min; Est GFR (African American) 82.4 ml/min; Est GFR (Non-African American) 71.1 ml/min; Potassium 4.1 mmol/L (3.5-5.1)
[2024-07-03] MEDS: PANTOprazole 40 MG TAB PO SCH (08:23)
[2024-07-03] MEDS: FOLIC ACID 400 MCG TAB PO SCH (08:23)
[2024-07-03] MEDS: MONTELUKAST SODIUM 10 MG TABLET PO SCH (08:23)
[2024-07-03] MEDS: FERROUS SULFATE 325 MG TAB PO SCH (08:23)
[2024-07-03] MEDS: MULTIVITAMIN TAB PO SCH (08:23)
[2024-07-03] MEDS: LOSARTAN/HCTZ 50/12.5MG TAB PO SCH (08:24)
[2024-07-03] MEDS: FLUoxetine HCL 20 MG CAP PO SCH (08:24)
[2024-07-03] MEDS: dexAMETHasone 4 MG TAB PO SCH (08:25)
[2024-07-03] MEDS: FLUTICASONE PROPIONATE NA SPR 16 GM BTL NAE SCH (08:25)
[2024-07-03] MEDS: APIXABAN 2.5 MG TAB PO SCH (08:25)
[2024-07-03] MEDS ORDERED: ERGOCALCIFEROL 1250 MCG (50,000 UNITS) CAP PO SCH (09:00)
== END 2024-07-03 11:24 | disposition home health service (06) ==
LOC: ASU 06:06 → 3N 06:06